=== PATIENT | male | born 1990 | race Caucasian/White ===

== ENCOUNTER 2022-08-14 03:21 | Emergency (ER) | payer SELFPAY ==
[2022-08-14 05:10] LABS: CORONAVIRUS COVID-19 NAA POSITIVE (NEGATIVE)
== END 2022-08-14 07:06 | disposition home or self-care (01) ==
LOC: JD.ED 03:21
DX: U07.1 COVID-19 (principal); Z79.899 Other long term (current) drug therapy
CPT/HCPCS: 0240U; 36415; 80048; 87651; 99283